=== PATIENT | female | born 1985 | race Caucasian/White ===

== ENCOUNTER 2017-04-06 13:15 | Emergency (ER) | payer OTHER ==
[2017-04-06] MEDS ORDERED: SODIUM CHLORIDE 0.9% 1,000 ML IV STA (15:10)
--- NOTE | 2017-04-06 15:31 | ED ---
General Adult HPI - General Chief complaint: Dizziness Stated complaint: nausea/tired/no appetite Time Seen by Provider: 04/06/17 15:01 Source: patient, RN notes reviewed Mode of arrival: ambulatory Limitations: no limitations - History of Present Illness Initial comments: Patient 31-year-old female who presents emergency room today with multiple complaints. Patient admits that symptoms started approximately 3 months ago. She states she's been feeling very tired. She states that she has had some loose stool. Denies any signs of blood. States that she's had some pain in the epigastric and left upper quadrant. States seems to come and go but is been more consistent lately. States she's been waking up at night with sweats feeling hot. Please use medication as discussed. Please follow-up with family doctor in the next 2 days of symptoms have not improved. Please return to emergency room if the symptoms increase or worsen or for any other concerns.Patient denies any other complaints at this time. Patient denies any shortness of breath, chest pain, back pain, vomiting, numbness or tingling, dysuria or hematuria, constipation or diarrhea, headaches or visual changes, or any other complaints. - Related Data Home Medications Medication Instructions Recorded Confirmed No Known Home Medications [No 04/06/17 04/06/17 Known Home Medications] Allergies Allergy/AdvReac Type Severity Reaction Status Date / Time codeine Allergy Swelling Verified 04/06/17 15:16 latex Allergy Swelling Verified 04/06/17 15:16 Review of Systems ROS Statement: Those systems with pertinent positive or pertinent negative responses have been documented in the HPI. ROS Other: All systems not noted in ROS Statement are negative. Past Medical History Past Medical History: Hypertension Additional Past Medical History / Comment(s): ovarian cyst , uterine mass, History of Any Multi-Drug Resistant Organisms: None Reported Past Surgical History: Section, Hysterectomy, Tonsillectomy Additional Past Surgical History / Comment(s): carpal tunnel,kb foot surgery, back surgery Past Psychological History: Anxiety Smoking Status: Current every day smoker Past Alcohol Use History: None Reported Past Drug Use History: None Reported General Exam Limitations: no limitations Course Vital Signs 04/06/17 13:33 Temperature 100.3 F H Pulse Rate 69 Respiratory 16 Rate Blood Pressure 127/60 O2 Sat by Pulse 97 Oximetry Medical Decision Making - Medical Decision Making Case discussed in detail with attending physician Dr. Vegas. Patient reexamined at this time shows no signs of distress resting comfortably. Patient does admit that she's had elevated white counts in the past. Patient's CT negative for any acute abdomen maladies. Chest x-ray negative. Results were discussed with patient. At this time shows an comfortable. Advised close follow-up family doctor in the next 2 days. Advised return to emergency room if any symptoms increase worsen or for any other concerns. - Lab Data Result diagrams: 04/06/17 15:38 04/06/17 15:38 Lab Results 04/06/17 04/06/17 04/06/17 Range/Units 15:38 15:38 15:38 WBC 14.3 H (3.8-10.6) k/uL RBC 4.61 (3.80-5.40) m/uL Hgb 14.9 (11.4-16.0) gm/dL Hct 45.0 (34.0-46.0) % MCV 97.8 (80.0-100.0) fL MCH 32.3 (25.0-35.0) pg MCHC 33.0 (31.0-37.0) g/dL RDW 12.9 (11.5-15.5) % Plt Count 341 (150-450) k/uL Neutrophils % 62 % Lymphocytes % 30 % Monocytes % 4 % Eosinophils % 2 % Basophils % 1 % Neutrophils # 8.9 H (1.3-7.7) k/uL Lymphocytes # 4.3 (1.0-4.8) k/uL Monocytes # 0.6 (0-1.0) k/uL Eosinophils # 0.3 (0-0.7) k/uL Basophils # 0.1 (0-0.2) k/uL Sodium 141 (137-145) mmol/L Potassium 4.0 (3.5-5.1) mmol/L Chloride 106 (98-107) mmol/L Carbon Dioxide 26 (22-30) mmol/L Anion Gap 9 mmol/L BUN 7 (7-17) mg/dL Creatinine 0.67 (0.52-1.04) mg/dL Est GFR (MDRD) Af Amer >60 (>60 ml/min/1.73 sqM) Est GFR (MDRD) Non-Af >60 (>60 ml/min/1.73 sqM) Glucose 95 (74-99) mg/dL Calcium 9.4 (8.4-10.2) mg/dL Total Bilirubin 0.2 (0.2-1.3) mg/dL AST 17 (14-36) U/L ALT 32 (9-52) U/L Alkaline Phosphatase 64 (38-126) U/L Total Protein 6.8 (6.3-8.2) g/dL Albumin 4.1 (3.5-5.0) g/dL Amylase 37 (30-110) U/L Lipase 89 (23-300) U/L TSH 0.633 (0.465-4.680) mIU/L Urine Color Urine Appearance (Clear) Urine pH (5.0-8.0) Ur Specific [place] (1.001-1.035) Urine Protein (Negative) Urine Glucose (UA) (Negative) Urine Ketones (Negative) Urine Blood (Negative) Urine Nitrite (Negative) Urine Bilirubin (Negative) Urine Urobilinogen (<2.0) mg/dL Ur Leukocyte Esterase (Negative) Urine HCG, Qual Not Detected (Not Detectd) 04/06/17 Range/Units 15:38 WBC (3.8-10.6) k/uL RBC (3.80-5.40) m/uL Hgb (11.4-16.0) gm/dL Hct (34.0-46.0) % MCV (80.0-100.0) fL MCH (25.0-35.0) pg MCHC (31.0-37.0) g/dL RDW (11.5-15.5) % Plt Count (150-450) k/uL Neutrophils % % Lymphocytes % % Monocytes % % Eosinophils % % Basophils % % Neutrophils # (1.3-7.7) k/uL Lymphocytes # (1.0-4.8) k/uL Monocytes # (0-1.0) k/uL Eosinophils # (0-0.7) k/uL Basophils # (0-0.2) k/uL Sodium (137-145) mmol/L Potassium (3.5-5.1) mmol/L Chloride (98-107) mmol/L Carbon Dioxide (22-30) mmol/L Anion Gap mmol/L BUN (7-17) mg/dL Creatinine (0.52-1.04) mg/dL Est GFR (MDRD) Af Amer (>60 ml/min/1.73 sqM) Est GFR (MDRD) Non-Af (>60 ml/min/1.73 sqM) Glucose (74-99) mg/dL Calcium (8.4-10.2) mg/dL Total Bilirubin (0.2-1.3) mg/dL AST (14-36) U/L ALT (9-52) U/L Alkaline Phosphatase (38-126) U/L Total Protein (6.3-8.2) g/dL Albumin (3.5-5.0) g/dL Amylase (30-110) U/L Lipase (23-300) U/L TSH (0.465-4.680) mIU/L Urine Color Light Yellow Urine Appearance Clear (Clear) Urine pH 6.5 (5.0-8.0) Ur Specific [place] 1.010 (1.001-1.035) Urine Protein Negative (Negative) Urine Glucose (UA) Negative (Negative) Urine Ketones Negative (Negative) Urine Blood Negative (Negative) Urine Nitrite Negative (Negative) Urine Bilirubin Negative (Negative) Urine Urobilinogen <2.0 (<2.0) mg/dL Ur Leukocyte Esterase Negative (Negative) Urine HCG, Qual (Not Detectd) Disposition Clinical Impression: Abdominal pain Disposition: HOME SELF-CARE Condition: Good Instructions: Abdominal Pain (ED) Additional Instructions: Please follow-up with family doctor in the next 2 days of symptoms have not improved. Please return to emergency room if the symptoms increase or worsen or for any other concerns. Referrals: None,Stated [Primary Care Provider] - 1-2 days Selvin London MD [REFERRING] - 1-2 days Time of Disposition: 17:19
[2017-04-06 15:49] LABS: Basophils # (A) 0.1 k/uL (0-0.2); Basophils % (A) 1 %; CHCM 33.9; Eosinophils # (A) 0.3 k/uL (0-0.7); Eosinophils % (A) 2 %; HDW 2.13; HGB 14.9 gm/dL (11.4-16.0); Luc % (Auto) 1; Lymphocytes # (A) 4.3 k/uL (1.0-4.8); Lymphocytes % (A) 30 %; MCH 32.3 pg (25.0-35.0); MCV 97.8 fL (80.0-100.0); Mean Platelet Volume 8.8; Monocytes # (A) 0.6 k/uL (0-1.0); Monocytes % (A) 4 %; Neutrophils # (A) 8.9 k/uL (1.3-7.7); Neutrophils % (A) 62 %; RBC 4.61 m/uL (3.80-5.40); RDW 12.9 % (11.5-15.5); WBC 14.3 k/uL (3.8-10.6); WBC (Perox) 13.56
[2017-04-06 15:50] LABS: Appearance,Urine Clear (Clear); Bilirubin,Urine Negative (Negative); Glucose,Urine (UA) Negative (Negative); Ketones,Urine Negative (Negative); Leukocyte Esterase,Urine Negative (Negative); Nitrite,Urine Negative (Negative); PH, Urine 6.5 (5.0-8.0); Protein,Urine Negative (Negative); UA Billing (MACRO vs. MICRO) CHEM; Urobilinogen,Urine <2.0 mg/dL (<2.0)
--- NOTE | 2017-04-06 15:58 | XR ---
EXAMINATION TYPE: XR chest 2V DATE OF EXAM: 04/06/2017 COMPARISON: Prior chest x-ray 09/27/2015 HISTORY: Fever, haziness, hypertension TECHNIQUE: Frontal and lateral views of the chest are obtained. FINDINGS: There is no focal air space opacity, pleural effusion, or pneumothorax seen. The cardiac silhouette size is within normal limits. The osseous structures are intact. IMPRESSION: No acute cardiopulmonary process.
[2017-04-06 15:59] LABS: ALT 32 U/L (9-52); AST 17 U/L (14-36); Alkaline Phosphatase 64 U/L (38-126); Amylase 37 U/L (30-110); Anion Gap 9 mmol/L; Blood Urea Nitrogen 7 mg/dL (7-17); Calcium 9.4 mg/dL (8.4-10.2); Carbon Dioxide 26 mmol/L (22-30); Chloride 106 mmol/L (98-107); Glucose 95 mg/dL (74-99); Non-African American GFR(MDRD) >60 (>60 ml/min/1.73 sqM); Sodium 141 mmol/L (137-145); Total Bilirubin 0.2 mg/dL (0.2-1.3); Total Protein 6.8 g/dL (6.3-8.2)
--- NOTE | 2017-04-06 16:00 | XR ---
Abdomen HISTORY: Abdomen pain left upper quadrant and loss of appetite Frontal view of the abdomen on 2 images correlated to prior exam 01/06/2014, 01/15/2015 The lung bases are clear. There is no bowel obstruction or pneumoperitoneum. No pathologic calcificat ion evident. IMPRESSION: No acute abnormalities evident
[2017-04-06] MEDS ORDERED: RX INFO: IV CONTRAST WAS GIVEN 1 EACH MISC MISCELLANE PRN (16:13)
--- NOTE | 2017-04-06 16:52 | CT ---
EXAMINATION TYPE: CT abdomen pelvis w con DATE OF EXAM: 04/06/2017 COMPARISON: 08/08/2014 HISTORY: Generalized abdominal pain and diarrhea x couple months. CT DLP: 1452.00 mGycm Automated exposure control for dose reduction was used. TECHNIQUE: Helical acquisition of images was performed from the lung bases through the pelvis. CONTRAST: Performed without Oral Contrast and with IV Contrast, patient injected with 100 mL of Omnipaque 300. FINDINGS: Lung bases are clear. There is no pleural effusion. Heart size is normal. Liver spleen pancreas gallbladder appear normal. Bile ducts are not dilated. There is no adrenal mass. Kidneys have normal size and contour. There is no hydronephrosis. There is no retroperitoneal adenopathy. I see no intestinal wall thickening. There are no dilated loops. Bladder distends smoothly. There is no ascites. Appendix appears normal. Bony structures appear intact. There is a small umbilical 1 cm h ernia that contains omental fat. IMPRESSION: NEGATIVE CT SCAN OF THE ABDOMEN AND PELVIS. NORMAL APPENDIX. NO CHANGE COMPARED TO OLD EXAM.
[2017-04-06 17:24] VITALS: BP 120/78; PULSE 56; RESP 18; TEMP 97.7
== END 2017-04-06 17:57 | disposition home or self-care (01) ==
LOC: EC 13:15
DX: R10.12 Left upper quadrant pain (principal); R10.13 Epigastric pain; F17.200 Nicotine dependence, unspecified, uncomplicated; Z88.5 Allergy status to narcotic agent; Z91.040 Latex allergy status
CPT/HCPCS: 36415; 93005; 80053; 84443; 82150; 83690; 85025; 81003; 81025; 87040; 87086; 71020; 74000; 74177; 99284; 96360; Q9967

== ENCOUNTER 2017-07-02 13:09 | Emergency (ER) | payer OTHER ==
[2017-07-02 13:21] VITALS: RESP 18
--- NOTE | 2017-07-02 14:04 | ED ---
General Adult HPI - General Chief complaint: Urogenital Stated complaint: Abd Pain, Poss UTI Time Seen by Provider: 07/02/17 13:20 Source: patient, RN notes reviewed Mode of arrival: ambulatory Limitations: no limitations - History of Present Illness Initial comments: Is a 32-year-old female who presents emergency Department complaining of vaginal discomfort. Patient states been ongoing for about 5 days. Patient states is also an odor that is abnormal for her. Patient states she thinks her boyfriend might if she got up but she's not sure. Patient denies any fever chills. Patient denies any dysuria hematuria urinary frequency. Patient denies any abdominal pain. Patient denies any nausea vomiting diarrhea. Patient states she's had a hysterectomy and oophorectomy on the right. Patient states there is a slight discharge since a little different than normal. - Related Data Previous Rx's Medication Instructions Recorded metroNIDAZOLE [Flagyl] 500 mg PO BID #14 tab 07/02/17 Allergies Allergy/AdvReac Type Severity Reaction Status Date / Time codeine Allergy Swelling Verified 07/02/17 13:32 latex Allergy Swelling Verified 07/02/17 13:32 Review of Systems ROS Statement: Those systems with pertinent positive or pertinent negative responses have been documented in the HPI. ROS Other: All systems not noted in ROS Statement are negative. Past Medical History Past Medical History: Hypertension Additional Past Medical History / Comment(s): ovarian cyst , uterine mass, History of Any Multi-Drug Resistant Organisms: None Reported Past Surgical History: Section, Hysterectomy, Tonsillectomy Additional Past Surgical History / Comment(s): carpal tunnel,kb foot surgery, back surgery Past Psychological History: Anxiety Smoking Status: Current every day smoker Past Alcohol Use History: None Reported Past Drug Use History: None Reported General Exam - General Exam Comments Initial Comments: GENERAL: Patient is well-developed and well-nourished. Patient is nontoxic and well- hydrated and is in no acute distress. ENT: Neck is soft and supple. No significant lymphadenopathy is noted. Oropharynx is clear. Moist mucous membranes. Neck has full range of motion without eliciting any pain. EYES: The sclera were anicteric and conjunctiva were pink and moist. Extraocular movements were intact and pupils were equal round and reactive to light. Eyelids were unremarkable. PULMONARY: Unlabored respirations. Good breath sounds bilaterally. No audible rales rhonchi or wheezing was noted. CARDIOVASCULAR: There is a regular rate and rhythm without any murmurs gallops or rubs. ABDOMEN: Soft and nontender with normal bowel sounds. No palpable organomegaly was noted. There is no palpable pulsatile mass. GENITAL: There is some mild odor on examination. On speculum exam there is some white discharge. She states this is a little abnormal for her. SKIN: Skin is clear with no lesions or rashes and otherwise unremarkable. NEUROLOGIC: Patient is alert and oriented x3. Cranial nerves II through XII are grossly intact. Motor and sensory are also intact. Normal speech, volume and content. Symmetrical smile. MUSCULOSKELETAL: Normal extremities with adequate strength and full range of motion. No lower extremity swelling or edema. No calf tenderness. LYMPHATICS: No significant lymphadenopathy is noted PSYCHIATRIC: Normal psychiatric evaluation. Normal interpersonal interactions appears functionally intact in deals appropriately with others. No signs of depression. No signs of anxiety. Limitations: no limitations Course Vital Signs 07/02/17 13:17 Temperature 98.7 F Pulse Rate 74 Respiratory 18 Rate Blood Pressure 119/59 O2 Sat by Pulse 98 Oximetry Medical Decision Making - Lab Data Lab Results 07/02/17 07/02/17 Range/Units 14:00 14:00 Urine Color Light Yellow Urine Appearance Clear (Clear) Urine pH 5.5 (5.0-8.0) Ur Specific [place] 1.005 (1.001-1.035) Urine Protein Negative (Negative) Urine Glucose (UA) Negative (Negative) Urine Ketones Negative (Negative) Urine Blood Negative (Negative) Urine Nitrite Negative (Negative) Urine Bilirubin Negative (Negative) Urine Urobilinogen <2.0 (<2.0) mg/dL Ur Leukocyte Esterase Negative (Negative) Trichomonas Ag (Rapid) Negative (Negative) Disposition Clinical Impression: Bacterial vaginosis Disposition: HOME SELF-CARE Condition: Good Instructions: Bacterial Vaginosis (ED) Prescriptions: metroNIDAZOLE [Flagyl] 500 mg PO BID #14 tab Referrals: None,Stated [Primary Care Provider] - 1-2 days Time of Disposition: 14:45
[2017-07-02 14:10] LABS: Appearance,Urine Clear (Clear); Bilirubin,Urine Negative (Negative); Glucose,Urine (UA) Negative (Negative); Ketones,Urine Negative (Negative); Leukocyte Esterase,Urine Negative (Negative); Nitrite,Urine Negative (Negative); PH, Urine 5.5 (5.0-8.0); Protein,Urine Negative (Negative); Specific Gravity,Urine 1.005 (1.001-1.035); UA Billing (MACRO vs. MICRO) CHEM; Urobilinogen,Urine <2.0 mg/dL (<2.0)
[2017-07-02 14:56] VITALS: BP 121/58; PULSE 85; TEMP 98
[2017-07-04 12:05] LABS: Chlamydia/GC Source Vaginal
== END 2017-07-02 14:56 | disposition home or self-care (01) ==
LOC: EC 13:09
DX: N76.0 Acute vaginitis (principal); F17.200 Nicotine dependence, unspecified, uncomplicated; Z90.710 Acquired absence of both cervix and uterus; Z90.722 Acquired absence of ovaries, bilateral; Z88.5 Allergy status to narcotic agent; Z91.040 Latex allergy status
CPT/HCPCS: 81003; 87070; 87205; 87491; 87591; 87808; 99284

== ENCOUNTER → 2017-08-16 | Outpatient (CLI) | payer OTHER ==
--- NOTE | 2017-08-16 23:12 | XR ---
EXAMINATION TYPE: XR KUB DATE OF EXAM: 08/16/2017 CLINICAL DATA: 32-year-old female right-sided abdominal pain, calculus of ureter, PHH COMPARISON: 04/06/2017 FINDINGS: Supine imaging limited for assessment of free air. Mild scattered stool written. Nonobstructive bowel gas pattern. Rounded calcifications in the pelvis suggest phleboliths. IMPRESSION: Calcifications in the pelvis suggestive of phleboliths. No suspicious renal calculus is appreciated r adiographically.
== END | disposition home or self-care (01) ==
LOC: RADXRMAIN 14:27
PROVIDERS: ATTEND Physician Assistant
DX: R93.41 Abnormal radiologic findings on diagnostic imaging of renal pelvis, ureter, or bladder (principal)
CPT/HCPCS: 74000

== ENCOUNTER → 2018-02-15 | Day surgery (SDC) | payer OTHER ==
[2018-02-10 09:32] VITALS: BMI 33.7
[~2018-02-15] MED LIST: LIDOCAINE 1% INJ 10MG/ML (20 ML MDV) ONE; PROPOFOL 10 MG/ML 20 ML VIAL IV ONE
--- NOTE | 2018-02-15 16:11 | P.OP ---
Date of Procedure: 02/15/18 Preoperative Diagnosis: GERD Epigastric pain Postoperative Diagnosis: Mild antral gastritis Small hiatal hernia Esophagitis Rectal polyp Procedure(s) Performed: EGD Colonoscopy Anesthesia: MAC Surgeon: Ruslan Brewer Pathology: other (Antrum, esophagus, rectal polyp) Condition: stable Disposition: PACU Description of Procedure: The patient's placed on the endoscopy table in the lateral position. She received IV sedation. The gastroscope placed oropharynx passed in the esophagus into the stomach. Scope was then placed through the pylorus. The first and second portion of the duodenum appeared normal. The scope was then brought back the antrum and this appeared mildly inflamed. A biopsies performed. Scope was unretroflexed and remainder stomach appeared normal. There is a small hiatal hernia. The GE junction was at 38 cm. The distal esophagus appeared inflamed this area is biopsied. The proximal esophagus appeared normal. Scope was brought patient. Next digital rectal exam was performed which revealed no ebonized. The flexible colonoscope was then placed the patient's anus and passed throughout the entire colon. The ileocecal valve was visualized. Cecum, ascending and transverse colon appeared normal. The descending colon appeared normal. In the rectum there is a small polyp seen this removed with cold forcep. The scope was withdrawn for patient.
== END ==
LOC: ORWHC2ENDO 08:44
PROVIDERS: ATTEND Surgery
DX: K21.0 Gastro-esophageal reflux disease with esophagitis (principal); K29.50 Unspecified chronic gastritis without bleeding; K44.9 Diaphragmatic hernia without obstruction or gangrene; K62.1 Rectal polyp; Z72.0 Tobacco use; Z88.5 Allergy status to narcotic agent; Z91.040 Latex allergy status; Z79.899 Other long term (current) drug therapy
CPT/HCPCS: 88305; 45380; 43239; J2001; J2704

== ENCOUNTER → 2018-03-08 | Outpatient (CLI) | payer OTHER ==
--- NOTE | 2018-03-08 09:27 | US ---
EXAMINATION TYPE: US gallbladder DATE OF EXAM: 03/08/2018 COMPARISON: CT 04/06/17 CLINICAL HISTORY: K81.1 Chronic Cholecysitis. Abd Pain, Nausea EXAM MEASUREMENTS: Liver Length: 15.2 cm Gallbladder Wall: 0.1 cm CBD: 0.3 cm Right Kidney: 12.3 x 6.1 x 4.4 cm Pancreas: Tail obscured by overlying bowel gas Liver: wnl Gallbladder: wnl Evidence for sonographic Petersen's sign: No CBD: wnl Right Kidney: wnl IMPRESSION: 1. Fatty hepatic infiltration noted.
--- NOTE | 2018-03-08 10:14 | NM ---
EXAMINATION TYPE: NM hepatobiliary w CCK DATE OF EXAM: 03/08/2018 COMPARISON: NONE HISTORY: Pain, chronic cholecystitis TECHNIQUE: After the intravenous administration of 4.79 mCi Tc 99m Mebrofenin hepatobiliary scintigra phy is performed. Immediate images post injection. FINDINGS: There is satisfactory initial accumulation of tracer by the liver. The gallbladder is visualized wit hin 8 minutes. The small bowel activity is noted within 18 minutes. At one hour CCK was administere d, patient was injected with 1.9 mcg of Kinevac, and gallbladder ejection fraction is calculated at 7 9 %, in the normal range. Therefore there is no scintigraphic evidence of cystic or common bile duct obstruction to suggest acute cholecystitis or gallbladder dyskinesia. IMPRESSION: Exam is within normal limits.
== END | disposition home or self-care (01) ==
LOC: RADUSMAIN 07:47
PROVIDERS: ATTEND Surgery
DX: K76.0 Fatty (change of) liver, not elsewhere classified (principal); K81.1 Chronic cholecystitis
CPT/HCPCS: 76705; 78227; A9537; J2805

== ENCOUNTER 2018-03-22 13:03 | Day surgery (SDC) | payer OTHER ==
[2018-03-15 13:05] VITALS: BMI 34.4
[~2018-03-22 13:03] MED LIST changes: +DEXAMETHASONE SOD PHOSPHATE 10 MG/ML 1 ML VIAL IV ONE; +HEPARIN SODIUM,PORCINE 5,000 UNIT/ML 1 ML VIAL SQ ONE; +LIDOCAINE 1% 20 ML VIAL (10MG/ML) FOR IV START INTRADERMA PRN; -LIDOCAINE 1% INJ 10MG/ML (20 ML MDV) ONE; +MIDAZOLAM 2 MG/2 ML VIAL IV PRN; +ONDANSETRON 4 MG/2 ML VIAL IVP ONE; -PROPOFOL 10 MG/ML 20 ML VIAL IV ONE; +SCOPOLAMINE 1.5MG/72HR PATCH TRANSDERM ONE; +ceFAZolin IN SWFI 2 GM/20 ML SYRINGE IVP ONE
[2018-03-22] MEDS: LACTATED RINGERS 1,000 ML IV SCH ×2 (13:30→14:40)
--- NOTE | 2018-03-22 13:59 | P.GSHP ---
History of Present Illness H&P Date: 03/22/18 Chief Complaint: Right upper quadrant pain This is a 32-year-old female who's had complaints of right upper quadrant pain. Her recent HIDA scan shows an elevated ejection fraction. She presents today for laparoscopic cholecystectomy for chronic cholecystitis. 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 History of Any Multi-Drug Resistant Organisms: None Reported Past Surgical History: Bladder Surgery, Section, Hysterectomy, Tonsillectomy, Tubal Ligation Additional Past Surgical History / Comment(s): Tumors removed from uterus and ovary, lipoma removed from back, bilateral foot surgery, bilateral carpal tunnel , exploratory laparoscopy. Past Anesthesia/Blood Transfusion Reactions: No Reported Reaction Past Psychological History: Anxiety Smoking Status: Current every day smoker Past Alcohol Use History: Occasional Additional Past Alcohol Use History / Comment(s): Smokes 1/2 PPD, since age 14 yrs old. Past Drug Use History: None Reported - Past Family History Mother Family Medical History: Cancer, Deep Vein Thrombosis (DVT) Medications and Allergies Home Medications Medication Instructions Recorded Confirmed Type Pantoprazole Sodium 20 mg PO QAM 03/15/18 03/22/18 History Allergies Allergy/AdvReac Type Severity Reaction Status Date / Time codeine Allergy Swelling Verified 03/22/18 13:18 of mouth and tongue latex Allergy Swelling/ra Verified 03/22/18 13:18 sh Surgical - Exam Vital Signs Temp Pulse Resp BP Pulse Ox 97.8 F 82 16 124/84 98 03/22/18 13:21 03/22/18 13:21 03/22/18 13:21 03/22/18 13:21 03/22/18 13:21 - General well developed, no distress - Eyes PERRL - ENT normal pinna - Neck no masses - Cardiovascular Rhythm: regular - Abdomen Abdomen: soft, non tender Assessment and Plan Assessment: History of right upper quadrant pain Chronic cholecystitis We'll perform laparoscopic cholecystectomy.
[2018-03-22] MEDS ORDERED: LIDOCAINE 1%-EPI 1:100,000 30 ML VIAL SQ ONE ×3 (14:17→15:20)
[2018-03-22] MEDS ORDERED: PROPOFOL 10 MG/ML 20 ML VIAL IV ONE (14:42)
[2018-03-22] MEDS ORDERED: LIDOCAINE 1% INJ 10MG/ML (20 ML MDV) ONE (14:42)
[2018-03-22] MEDS ORDERED: MIDAZOLAM 2 MG/2 ML VIAL ONE (14:42)
[2018-03-22] MEDS ORDERED: SUCCINYLCHOLINE CHLORIDE 100 MG/5 ML SYR IV ONE (14:42)
[2018-03-22] MEDS ORDERED: HYDROmorphone (PF) 1 MG/ML ONE (14:42)
[2018-03-22] MEDS ORDERED: GLYCOPYRROLATE 0.2 MG/ML 2 ML VIAL ONE (14:42)
[2018-03-22] MEDS ORDERED: fentaNYL (PF) 50 MCG/ML 2 ML AMP ONE (14:42)
[2018-03-22] MEDS ORDERED: NEOSTIGMINE 1 MG/ML 10 ML VIAL ONE (14:42)
[2018-03-22] MEDS ORDERED: ROCURONIUM BROMIDE 10 MG/ML 10 ML VIAL IV ONE (14:42)
[2018-03-22] MEDS: HYDROmorphone 0.5 MG/0.5 ML SYRINGE IVP PRN ×4 (15:50→16:31)
--- NOTE | 2018-03-22 15:51 | P.OP ---
Date of Procedure: 03/22/18 Preoperative Diagnosis: Cholecystitis Postoperative Diagnosis: Cholecystitis Procedure(s) Performed: Laparoscopic cholecystectomy Anesthesia: SUELLEN Surgeon: Ruslan Brewer Estimated Blood Loss (ml): 5 Pathology: other (Gallbladder) Condition: stable Disposition: PACU Description of Procedure: The patient was placed on the operating table. The patient received a general endotracheal tube anesthesia. The patients abdomen was prepped and draped in the usual sterile fashion. Through an infraumbilical stab incision, the fascia of the anterior abdominal wall was grasped with a pair of Kochers and then the Veress needle was placed in the peritoneal cavity. Position of the Veress needle was confirmed with positive drop test. The abdomen was then insufflated. After adequate insufflation, the 10 mm trocar was placed in the peritoneal cavity. Following this the laparoscope was placed in the peritoneal cavity. The patient was placed in the head-up, right side up position and then a 5 mm trocar was placed in the right lateral and right subcostal position under direct visualization. A 8 mm trocar was placed in the epigastric position. The gallbladder was grasped in the fundus and infundibulum. Traction on the gallbladder was placed in the lateral and the cephalad positions. The triangle of Calot was visualized.. The cystic duct was bluntly dissected until the union of the cystic duct and common bile duct was seen. The cystic duct was then divided and sealed with the Harmonic scissors. A PDS Endoloop was then placed throughout the cystic duct stump. The cystic artery divided and sealed with the Harmonic scissors. The gallbladder was then removed from the liver bed using Harmonic scissors. The gallbladder was then extracted through the epigastric port site. Operative field was checked for any bleeding spots and Harmonic scissors was used to coagulate the liver bed. The abdomen was irrigated. The trocars were removed. The skin was closed using interrupted 3-0 Vicryl suture. Dermabond dressing were applied. The patient tolerated the procedure well.
[2018-03-22 15:59] VITALS: TEMP 97.7
[2018-03-22] MEDS ORDERED: ONDANSETRON 4 MG/2 ML VIAL IVP ONE (16:01)
[2018-03-22] MEDS ORDERED: KETOROLAC 30 MG/ML 1 ML VIAL IVP ONE (16:02)
[2018-03-22 16:39] VITALS: RESP 18
[2018-03-22] MEDS ORDERED: HYDROcodone/APAP 7.5-325MG 1 EACH TAB PO ONE (17:16)
[2018-03-22 17:46] VITALS: BP 120/80; PULSE 64
== END 2018-03-22 17:54 | disposition home or self-care (01) ==
LOC: OR 13:03
PROVIDERS: ATTEND Surgery
DX: K81.1 Chronic cholecystitis (principal); M79.7 Fibromyalgia; K21.9 Gastro-esophageal reflux disease without esophagitis; I10 Essential (primary) hypertension; N30.10 Interstitial cystitis (chronic) without hematuria; F41.9 Anxiety disorder, unspecified; C95.90 Leukemia, unspecified not having achieved remission; F17.210 Nicotine dependence, cigarettes, uncomplicated; Z79.899 Other long term (current) drug therapy; Z88.5 Allergy status to narcotic agent; Z91.040 Latex allergy status; Z90.710 Acquired absence of both cervix and uterus; Z98.51 Tubal ligation status
CPT/HCPCS: 47562; J2250; J1644; J1100; J2710; J2405; J2001; J3010; J1885; J1170 ×2; J0330; J2704; J0690; 88304

== ENCOUNTER 2019-06-29 08:40 | Emergency (ER) | payer OTHER ==
[2019-06-29] MEDS ORDERED: SODIUM CHLORIDE 0.9% 1,000 ML IV STA (09:13)
[2019-06-29 09:27] LABS: Basophils # (A) 0.1 k/uL (0-0.2); Basophils % (A) 1 %; Eosinophils # (A) 0.3 k/uL (0-0.7); Eosinophils % (A) 2 %; HCT 44.2 % (34.0-46.0); HGB 14.9 gm/dL (11.4-16.0); Lymphocytes # (A) 2.5 k/uL (1.0-4.8); Lymphocytes % (A) 20 %; MCH 32.1 pg (25.0-35.0); MCHC 33.8 g/dL (31.0-37.0); Mean Platelet Volume 6.7; Monocytes # (A) 0.5 k/uL (0-1.0); Monocytes % (A) 4 %; Neutrophils % (A) 71 %; Platelet Count 381 k/uL (150-450); RBC 4.65 m/uL (3.80-5.40); RDW 12.3 % (11.5-15.5); WBC 12.6 k/uL (3.8-10.6)
[2019-06-29 09:38] LABS: ALT 29 U/L (9-52); AST 27 U/L (14-36); African American GFR (CKD) >90 (>60 ml/min/1.73 sqM); Albumin 4.2 g/dL (3.5-5.0); Alkaline Phosphatase 64 U/L (38-126); Anion Gap 10 mmol/L; Blood Urea Nitrogen 13 mg/dL (7-17); Calcium 9.7 mg/dL (8.4-10.2); Carbon Dioxide 24 mmol/L (22-30); Chloride 106 mmol/L (98-107); Glucose 100 mg/dL (74-99); Potassium 4.4 mmol/L (3.5-5.1); Sodium 140 mmol/L (137-145); Total Bilirubin 0.4 mg/dL (0.2-1.3); Total Protein 7.4 g/dL (6.3-8.2)
[2019-06-29 09:49] LABS: Appearance,Urine Clear (Clear); Bilirubin,Urine Negative (Negative); Blood,Urine Negative (Negative); Color,Urine Yellow; Glucose,Urine (UA) Negative (Negative); Ketones,Urine Negative (Negative); Leukocyte Esterase,Urine Negative (Negative); Nitrite,Urine Negative (Negative); PH, Urine 6.5 (5.0-8.0); Protein,Urine Negative (Negative); Urobilinogen,Urine <2.0 mg/dL (<2.0)
--- NOTE | 2019-06-29 10:00 | CT ---
EXAMINATION TYPE: CT abdomen pelvis w con DATE OF EXAM: 06/29/2019 COMPARISON: 04/06/2017 HISTORY: Right upper quadrant pain. CT DLP: 1776.4 mGy Automated exposure control for dose reduction was used. CONTRAST: CT scan of the abdomen pelvis is performed with IV Contrast, patient injected with 100 mL of Isovue 3 00. FINDINGS- LUNG BASES- No significant abnormality is appreciated. LIVER/GB- No gross abnormality is appreciated. PANCREAS- No gross abnormality is seen. SPLEEN- No gross abnormality is seen. ADRENALS- No gross abnormality is seen. KIDNEYS/BLADDER- no hydronephrosis nephrolithiasis or renal mass. BOWEL- no bowel dilatation. Normal appendix. LYMPH NODES- No greater than 1cm abdominal or pelvic lymph nodes areappreciated. OSSEOUS STRUCTURES- No significant abnormality is seen. OTHER- there is a prominent soft tissue nodule left adnexa which most likely is related to be residu al left ovary with small decompressed cyst. Correlate for previous hysterectomy. Fat-containing anter ior abdominal wall hernia. Retroaortic left renal vein noted. IMPRESSION- 1. There is a prominent soft correlate with pelvic ultrasound formation is tissue nodule left adnexa which most likely is related to be residual left ovary with small decompressed cyst.
[2019-06-29] MEDS ORDERED: KETOROLAC 30 MG/ML 1 ML VIAL IVP STA (10:03)
--- NOTE | 2019-06-29 10:05 | ED ---
Abdominal Pain HPI - General Chief Complaint: Abdominal Pain Stated Complaint: ABDOMINAL PRESSURE RT SIDE Hx LIVER PROBLEM Time Seen by Provider: 06/29/19 08:56 Source: patient Mode of arrival: ambulatory Limitations: no limitations - History of Present Illness Initial Comments: 34-year-old female with history of fatty liver presents emergency department for chief complaint of right upper quadrant tenderness. History of previous cholecystectomy. Patient states that she has had right upper quadrant tenderness for the past year. She states is interference her daily activity. Patient states that she was told she had an enlarged liver. Patient states she is scheduled for a CT of the abdomen and pelvis with contrast this Tuesday. Patient states she cannot bear weight. She states she wants answers and further evaluation of this chronic pressure in the right upper quadrant. Patient states that she feels increased pressure when she takes deep breath denies sharp pain denies pleuritic chest pain denies chest pain nausea vomiting back pain. P atient denies any fevers or recent changes in symptoms. Patient denies any vaginal discharge. Remaining review of system negative. Patient appears well upon arrival no signs acute distress - Related Data Home Medications Medication Instructions Recorded Confirmed Pantoprazole Sodium 20 mg PO QAM 03/15/18 06/29/19 diphenhydrAMINE HCL [Benadryl] 25 - 50 mg PO HS PRN 06/29/19 06/29/19 Allergies Allergy/AdvReac Type Severity Reaction Status Date / Time codeine Allergy Swelling Verified 06/29/19 09:20 of mouth and tongue latex Allergy Swelling/ra Verified 06/29/19 09:20 sh Review of Systems ROS Statement: Those systems with pertinent positive or pertinent negative responses have been documented in the HPI. ROS Other: All systems not noted in ROS Statement are negative. 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 History of Any Multi-Drug Resistant Organisms: None Reported Past Surgical History: Bladder Surgery, Section, Hysterectomy, Tonsillectomy, Tubal Ligation Additional Past Surgical History / Comment(s): Tumors removed from uterus and ovary, lipoma removed from back, bilateral foot surgery, bilateral carpal tunnel, exploratory laparoscopy. Past Anesthesia/Blood Transfusion Reactions: No Reported Reaction Past Psychological History: Anxiety Smoking Status: Current every day smoker Past Alcohol Use History: Occasional Past Drug Use History: Marijuana - Past Family History Mother Family Medical History: Cancer, Deep Vein Thrombosis (DVT) General Exam - General Exam Comments Initial Comments: General: The patient is awake and alert, in no distress, and does not appear acutely ill. Eye: +3 mm pupils are equal, round and reactive to light, extra-ocular movements are intact. No nystagmus. There is normal conjunctiva bilaterally. No signs of icterus. Cardiovascular: There is a regular rate and rhythm. No murmur, rub or gallop is appreciated. Respiratory: Lungs are clear to auscultation, respirations are non-labored, breath sounds are equal. No wheezes, stridor, rales, or rhonchi. Gastrointestinal: Soft, non-distended, bowel tenderness for patient of the upper quadrant there is no rebound or guarding present, negative Petersen sign. There is no appreciated organomegaly. The remaining abdomen without masses. Or tenderness No CVA tenderness. Bowel sounds are unremarkable. Musculoskeletal: Normal ROM, no tenderness. Strength 5/5. Sensation intact. Pulses equal bilaterally 2+. Neurological: A&O x 3. CN II-XII intact grossly, There are no obvious motor or sensory deficits. Coordination appears grossly intact. Speech is normal. Skin: Skin is warm and dry and no rashes or lesions are noted. Psychiatric: Cooperative, appropriate mood & affect, normal judgment. Limitations: no limitations Course Vital Signs 06/29/19 06/29/19 08:47 10:46 Temperature 98.2 F 97.4 F L Pulse Rate 84 60 Respiratory 20 17 Rate Blood Pressure 135/88 118/92 O2 Sat by Pulse 99 95 Oximetry Medical Decision Making - Medical Decision Making Very well-appearing 34-year-old female presented for upper quadrant pressure and pain this is chronic and has been evaluated outpatient. Patient scheduled for outpatient CT. Patient is appreciable right upper quadrant tenderness on exam. She is afebrile nontoxic appearing this does not appear to be a surgical abdomen negative Petersen sign. CT of the abdomen and pelvis with contrast was obtained revealing no acute process. At this time feel patient is stable for discharge and outpatient gastroenterology follow-up for further evaluation of chronic right upper quadrant abdominal pain. Patient is agreeable to this care plan discharge at this time was discharged appearing well. The case with attending provider Dr. Bolanos - Lab Data Result diagrams: 06/29/19 09:10 06/29/19 09:10 Lab Results 06/29/19 06/29/19 06/29/19 Range/Units 09:10 09:10 09:10 WBC 12.6 H (3.8-10.6) k/uL RBC 4.65 (3.80-5.40) m/uL Hgb 14.9 (11.4-16.0) gm/dL Hct 44.2 (34.0-46.0) % MCV 95.0 (80.0-100.0) fL MCH 32.1 (25.0-35.0) pg MCHC 33.8 (31.0-37.0) g/dL RDW 12.3 (11.5-15.5) % Plt Count 381 (150-450) k/uL Neutrophils % 71 % Lymphocytes % 20 % Monocytes % 4 % Eosinophils % 2 % Basophils % 1 % Neutrophils # 9.0 H (1.3-7.7) k/uL Lymphocytes # 2.5 (1.0-4.8) k/uL Monocytes # 0.5 (0-1.0) k/uL Eosinophils # 0.3 (0-0.7) k/uL Basophils # 0.1 (0-0.2) k/uL Sodium 140 (137-145) mmol/L Potassium 4.4 (3.5-5.1) mmol/L Chloride 106 (98-107) mmol/L Carbon Dioxide 24 (22-30) mmol/L Anion Gap 10 mmol/L BUN 13 (7-17) mg/dL Creatinine 0.76 (0.52-1.04) mg/dL Est GFR (CKD-EPI)AfAm >90 (>60 ml/min/1.73 sqM) Est GFR (CKD-EPI)NonAf >90 (>60 ml/min/1.73 sqM) Glucose 100 H (74-99) mg/dL Calcium 9.7 (8.4-10.2) mg/dL Total Bilirubin 0.4 (0.2-1.3) mg/dL AST 27 (14-36) U/L ALT 29 (9-52) U/L Alkaline Phosphatase 64 (38-126) U/L Troponin I <0.012 (0.000-0.034) ng/mL Total Protein 7.4 (6.3-8.2) g/dL Albumin 4.2 (3.5-5.0) g/dL Lipase 79 (23-300) U/L Urine Color Urine Appearance (Clear) Urine pH (5.0-8.0) Ur Specific Dudley (1.001-1.035) Urine Protein (Negative) Urine Glucose (UA) (Negative) Urine Ketones (Negative) Urine Blood (Negative) Urine Nitrite (Negative) Urine Bilirubin (Negative) Urine Urobilinogen (<2.0) mg/dL Ur Leukocyte Esterase (Negative) 06/29/19 Range/Units 09:15 WBC (3.8-10.6) k/uL RBC (3.80-5.40) m/uL Hgb (11.4-16.0) gm/dL Hct (34.0-46.0) % MCV (80.0-100.0) fL MCH (25.0-35.0) pg MCHC (31.0-37.0) g/dL RDW (11.5-15.5) % Plt Count (150-450) k/uL Neutrophils % % Lymphocytes % % Monocytes % % Eosinophils % % Basophils % % Neutrophils # (1.3-7.7) k/uL Lymphocytes # (1.0-4.8) k/uL Monocytes # (0-1.0) k/uL Eosinophils # (0-0.7) k/uL Basophils # (0-0.2) k/uL Sodium (137-145) mmol/L Potassium (3.5-5.1) mmol/L Chloride (98-107) mmol/L Carbon Dioxide (22-30) mmol/L Anion Gap mmol/L BUN (7-17) mg/dL Creatinine (0.52-1.04) mg/dL Est GFR (CKD-EPI)AfAm (>60 ml/min/1.73 sqM) Est GFR (CKD-EPI)NonAf (>60 ml/min/1.73 sqM) Glucose (74-99) mg/dL Calcium (8.4-10.2) mg/dL Total Bilirubin (0.2-1.3) mg/dL AST (14-36) U/L ALT (9-52) U/L Alkaline Phosphatase (38-126) U/L Troponin I (0.000-0.034) ng/mL Total Protein (6.3-8.2) g/dL Albumin (3.5-5.0) g/dL Lipase (23-300) U/L Urine Color Yellow Urine Appearance Clear (Clear) Urine pH 6.5 (5.0-8.0) Ur Specific Dudley 1.020 (1.001-1.035) Urine Protein Negative (Negative) Urine Glucose (UA) Negative (Negative) Urine Ketones Negative (Negative) Urine Blood Negative (Negative) Urine Nitrite Negative (Negative) Urine Bilirubin Negative (Negative) Urine Urobilinogen <2.0 (<2.0) mg/dL Ur Leukocyte Esterase Negative (Negative) Disposition Clinical Impression: Abdominal pain, chronic, right upper quadrant Disposition: HOME SELF-CARE Condition: Good Instructions (If sedation given, give patient instructions): Abdominal Pain (ED) Additional Instructions: Please use medication as discussed. Please follow-up with gastroenterology in next 1-2 days. Please return to emergency room if the symptoms increase or worsen or for any other concerns. Is patient prescribed a controlled substance at d/c from ED?: No Referrals: Becca Barrios DO [Primary Care Provider] - 1-2 days Sean Sharp MD [STAFF PHYSICIAN] - 1-2 days Time of Disposition: 10:04
[2019-06-29 10:58] VITALS: BP 118/92; PULSE 60; RESP 17; TEMP 97.4
== END 2019-06-29 10:46 | disposition home or self-care (01) ==
LOC: EC 08:40
DX: G89.29 Other chronic pain (principal); R10.11 Right upper quadrant pain; K21.9 Gastro-esophageal reflux disease without esophagitis; I10 Essential (primary) hypertension; F17.200 Nicotine dependence, unspecified, uncomplicated; Z79.899 Other long term (current) drug therapy; Z88.5 Allergy status to narcotic agent; Z91.040 Latex allergy status; Z90.710 Acquired absence of both cervix and uterus; Z90.49 Acquired absence of other specified parts of digestive tract
CPT/HCPCS: 36415; 80053; 83690; 84484; 85025; 81003; 74177; 99284; 96374; 96361; J1885; Q9967

== ENCOUNTER → 2020-02-14 | Outpatient (CLI) | payer OTHER ==
[2020-02-14 09:58] VITALS: BP 105/73; PULSE 86; RESP 18; TEMP 97.6
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
== END | disposition home or self-care (01) ==
LOC: WWCWWP 09:45
PROVIDERS: ATTEND Surgery
DX: Z53.9 Procedure and treatment not carried out, unspecified reason (principal)

== ENCOUNTER → 2020-09-18 | Outpatient (CLI) | payer OTHER ==
--- NOTE | 2020-09-19 00:04 | MR ---
EXAMINATION TYPE: MR shoulder LT wo con DATE OF EXAM: 09/18/2020 COMPARISON: None HISTORY: Left Shoulder Pain, loss of ROM. Fell on Ice Multiplanar multiecho imaging of the left shoulder was performed without contrast. There is moderate spurring at the AC joint. There is edema in the lateral and of the clavicle. There is mild subacromial impingement on the supraspinatus muscle. The biceps tendon is intact. Subscapularis tendon is intact. Glenoid russ appear normal. There is sl ight increased signal in the supraspinatus tendon near the greater tuberosity of the humerus. I do no t see a definite full-thickness tear. There is no evidence of a fracture line. Proximal humerus is in tact. IMPRESSION: Slight increased signal in the supraspinatus tendon at the greater tuberosity of the humerus consiste nt with some mild tendinitis. There are small intrasubstance tears of the supraspinatus tendon seen o n coronal image 14 of the fat saturation images and also the superior aspect of the supraspinatus ten don near the attachment on the greater tuberosity seen on coronal image 12 of the T2 fat-sat images. There is increased signal in the lateral and of the clavicle and also the acromion with spur formatio n consistent with arthritic disease in possible additional bone bruise. There is mild impingement on the supraspinatus muscle.
== END | disposition home or self-care (01) ==
LOC: RADMRIMAIN 08:13
PROVIDERS: ATTEND Orthopaedic Surgery
DX: M75.102 Unspecified rotator cuff tear or rupture of left shoulder, not specified as traumatic (principal); M25.712 Osteophyte, left shoulder; M75.42 Impingement syndrome of left shoulder; R93.7 Abnormal findings on diagnostic imaging of other parts of musculoskeletal system

== ENCOUNTER → 2020-10-02 | Day surgery (SDC) | payer OTHER ==
[2020-09-29 15:36] VITALS: BMI 40.1
[~2020-10-02] MED LIST changes: -DEXAMETHASONE SOD PHOSPHATE 10 MG/ML 1 ML VIAL IV ONE; -HEPARIN SODIUM,PORCINE 5,000 UNIT/ML 1 ML VIAL SQ ONE; +LACTATED RINGERS 1,000 ML IV SCH; +LIDOCAINE 1% (10MG/ML) FOR IV START INTRADERMA ONE; -LIDOCAINE 1% 20 ML VIAL (10MG/ML) FOR IV START INTRADERMA PRN; -MIDAZOLAM 2 MG/2 ML VIAL IV PRN; -ONDANSETRON 4 MG/2 ML VIAL IVP ONE; +PROPOFOL 10 MG/ML 20 ML VIAL IV ONE; -SCOPOLAMINE 1.5MG/72HR PATCH TRANSDERM ONE; -ceFAZolin IN SWFI 2 GM/20 ML SYRINGE IVP ONE
[2020-10-02 08:37] VITALS: RESP 16; TEMP 96.9
--- NOTE | 2020-10-02 08:59 | P.GSHP ---
History of Present Illness H&P Date: 10/02/20 Chief Complaint: GI bleed This is a 35-year-old female been safe for colonoscopy. She's had issues with GI bleed. Past Medical History Past Medical History: Fibromyalgia, GERD/Reflux, GI Bleed, Hypertension Additional Past Medical History / Comment(s): Hx migraines, constant abdominal pain, nausea and bloating,fatty liver, interstitial cystitis, "high white blood cell count", hemorhage after Section, "slightly enlarged spleen, low thyroid, no meds." lt hip pain after recent fall History of Any Multi-Drug Resistant Organisms: None Reported Past Surgical History: Bladder Surgery, Section, Cholecystectomy, Hysterectomy, Tonsillectomy, Tubal Ligation Additional Past Surgical History / Comment(s): Tumors removed from uterus and ovary, lipoma removed from back, bilateral foot surgery, bilateral carpal tunnel, exploratory laparoscopy. Past Anesthesia/Blood Transfusion Reactions: No Reported Reaction Smoking Status: Former smoker - Past Family History Mother Family Medical History: Cancer, Deep Vein Thrombosis (DVT) Medications and Allergies Home Medications Medication Instructions Recorded Confirmed Type Omeprazole 20 mg PO DAILY 02/14/20 10/02/20 History Prazosin HCl 2 mg PO HS 02/14/20 10/02/20 History busPIRone HCL 10 mg PO DAILY PRN 02/14/20 10/02/20 History Pnv,Calcium 72/Iron/Folic Acid 1 each PO Q7D 09/29/20 10/02/20 History [ Plus Tablet] Rizatriptan Benzoate [Rizatriptan] 10 mg PO DAILY PRN 09/29/20 10/02/20 History Topiramate [Topamax] 100 mg PO HS 09/29/20 10/02/20 History buPROPion HCL [Wellbutrin XL] 150 mg PO DAILY 09/29/20 10/02/20 History Allergies Allergy/AdvReac Type Severity Reaction Status Date / Time codeine Allergy Swelling Verified 09/29/20 15:26 of mouth and tongue latex Allergy Swelling/ra Verified 09/29/20 15:26 sh Surgical - Exam Vital Signs Temp Pulse Resp BP Pulse Ox 96.9 F L 89 16 115/69 96 10/02/20 08:35 10/02/20 08:35 10/02/20 08:35 10/02/20 08:35 10/02/20 08:35 - General well developed, well nourished, no distress - Eyes PERRL - ENT normal pinna - Neck no masses - Respiratory normal expansion - Cardiovascular Rhythm: regular - Abdomen Abdomen: soft, non tender Assessment and Plan Assessment: GI Bleed. We'll perform colonoscopy
--- NOTE | 2020-10-02 09:10 | P.OP ---
Date of Procedure: 10/02/20 Preoperative Diagnosis: GI bleed Postoperative Diagnosis: Internal hemorrhoids Procedure(s) Performed: Colonoscopy Anesthesia: MAC Surgeon: Ruslan Brewer Pathology: none sent Condition: stable Disposition: PACU Description of Procedure: The patient's placed on the endoscopy table in the lateral position. She received IV sedation. The digital rectal exam was performed which revealed a few internal hemorrhoids. Flexible colonoscope was then placed patient anus passed throughout the entire colon. The ileocecal valve lesions. The cecum, ascending and transverse colon appeared normal. The descending and sigmoid colon appeared normal. Scope was brought back the rectum this appeared normal. There is no evidence of any colonic GI bleed. The scope was then brought through the anus and internal hemorrhoids are noted. There is known to any active bleeding from hemorrhoids. Scope was then withdrawn from patient.
[2020-10-02 09:27] VITALS: BP 117/70; PULSE 60
== END ==
LOC: ORWHC2ENDO 07:49
PROVIDERS: ATTEND Surgery
DX: K64.8 Other hemorrhoids (principal); K92.2 Gastrointestinal hemorrhage, unspecified; M79.7 Fibromyalgia; K21.9 Gastro-esophageal reflux disease without esophagitis; I10 Essential (primary) hypertension; G43.909 Migraine, unspecified, not intractable, without status migrainosus; K76.0 Fatty (change of) liver, not elsewhere classified; D72.829 Elevated white blood cell count, unspecified; Z98.891 History of uterine scar from previous surgery; Z90.49 Acquired absence of other specified parts of digestive tract; Z90.710 Acquired absence of both cervix and uterus; Z98.890 Other specified postprocedural states; Z98.51 Tubal ligation status; Z87.891 Personal history of nicotine dependence; Z90.89 Acquired absence of other organs; Z79.899 Other long term (current) drug therapy; Z88.5 Allergy status to narcotic agent; Z91.040 Latex allergy status
CPT/HCPCS: 45378; J2704

== ENCOUNTER → 2021-01-13 | Outpatient (CLI) | payer OTHER ==
[2021-01-13 08:19] LABS: Basophils # (A) 0.1 k/uL (0-0.2); Basophils % (A) 1 %; Eosinophils # (A) 0.2 k/uL (0-0.7); Eosinophils % (A) 3 %; HCT 41.4 % (34.0-46.0); HGB 13.4 gm/dL (11.4-16.0); Lymphocytes # (A) 3.1 k/uL (1.0-4.8); Lymphocytes % (A) 37 %; MCHC 32.4 g/dL (31.0-37.0); MCV 95.7 fL (80.0-100.0); Mean Platelet Volume 8.5; Monocytes # (A) 0.4 k/uL (0-1.0); Monocytes % (A) 5 %; Neutrophils # (A) 4.4 k/uL (1.3-7.7); Neutrophils % (A) 53 %; Platelet Count 342 k/uL (150-450); RBC 4.33 m/uL (3.80-5.40); RDW 12.9 % (11.5-15.5); WBC 8.4 k/uL (3.8-10.6)
[2021-01-13 08:28] LABS: Potassium 4.2 mmol/L (3.5-5.1)
== END | disposition home or self-care (01) ==
LOC: LABPAT 07:16
PROVIDERS: ATTEND Orthopaedic Surgery
DX: Z01.812 Encounter for preprocedural laboratory examination (principal); M75.41 Impingement syndrome of right shoulder
CPT/HCPCS: 36415; 80051; 85025

== ENCOUNTER 2021-01-21 08:35 | Day surgery (SDC) | payer OTHER ==
[2021-01-16 11:14] VITALS: BMI 32.8
--- NOTE | 2021-01-20 13:30 | HP ---
HISTORY AND PHYSICAL REASON FOR ADMISSION: Surgery scheduled 01/21/2021. HISTORY OF PRESENT ILLNESS: Danyelle Bryan is a 35-year-old patient seen with progressive left shoulder pain. We discussed options for treatment. She elected to proceed with arthroscopy. Consent is obtained. PAST MEDICAL HISTORY: Hypothyroidism. PAST SURGICAL HISTORY: Noncontributory. MEDICATIONS: Omeprazole, buspirone. ALLERGIES: NONE. SOCIAL HISTORY: She denies tobacco use. PHYSICAL EXAMINATION: Evaluation of her left shoulder, flexion 80, abduction 70, external rotation 30 with weakness. Tenderness along the anterolateral acromion and rotator cuff insertion site. Impingement positive at 70. Drop-arm sign is positive. Distal neurovascular exam intact. RADIOGRAPHS: Radiographs of the left shoulder revealed a type 2 acromion, acromioclavicular joint osteoarthritis and cystic changes of the tuberosity. Left shoulder MRI revealed a partial rotator cuff tear and acromial spur. IMPRESSION: 1. Left shoulder impingement with partial rotator cuff tear. 2. Left shoulder acromioclavicular joint osteoarthritis. 3. Hypothyroidism. PLAN: Left shoulder arthroscopy, subacromial decompression, arthroscopic rotator cuff repair, Lc procedure and debridement. MMODL / IJN: [id number] /
[2021-01-21] MEDS ORDERED: fentaNYL (PF) 50 MCG/ML 2 ML AMP IV PRN (08:46)
[2021-01-21] MEDS ORDERED: SCOPOLAMINE 1.5MG/72HR PATCH TRANSDERM ONE (08:46)
[2021-01-21] MEDS ORDERED: ONDANSETRON 4 MG/2 ML VIAL IVP ONE (08:46)
[2021-01-21] MEDS ORDERED: DEXAMETHASONE SOD PHOSPHATE 4 MG/ML 1 ML VIAL IV ONE (08:46)
[2021-01-21] MEDS ORDERED: LIDOCAINE 1% (10MG/ML) FOR IV START INTRADERMA PRN (08:46)
[2021-01-21] MEDS ORDERED: LACTATED RINGERS 1,000 ML IV SCH (08:46)
[2021-01-21] MEDS ORDERED: MIDAZOLAM 2 MG/2 ML VIAL IV ONE (10:14)
[2021-01-21] MEDS ORDERED: fentaNYL (PF) 50 MCG/ML 2 ML AMP ONE (10:31)
[2021-01-21] MEDS ORDERED: PHENYLEPHRINE-0.9% NACL SYG 1,000 MCG/10 ML SYRINGE ONE (10:31)
[2021-01-21] MEDS ORDERED: GLYCOPYRROLATE 0.2 MG/ML 2 ML VIAL ONE (10:31)
[2021-01-21] MEDS ORDERED: MIDAZOLAM 2 MG/2 ML VIAL ONE (10:31)
[2021-01-21] MEDS ORDERED: ROCURONIUM 10 MG/ML (5 ML VIAL) IV ONE (10:31)
[2021-01-21] MEDS ORDERED: ROPIVACAINE 5 MG/ML 30 ML VIAL ONE (10:31)
[2021-01-21] MEDS ORDERED: DEXAMETHASONE SOD PHOSPHATE 4 MG/ML 1 ML VIAL ONE (10:31)
[2021-01-21] MEDS ORDERED: LIDOCAINE 1% INJ 10MG/ML (20 ML MDV) ONE (10:31)
[2021-01-21] MEDS ORDERED: SUCCINYLCHOLINE CHLORIDE 100 MG/5 ML SYR IV ONE (10:31)
[2021-01-21] MEDS ORDERED: PROPOFOL 10 MG/ML 20 ML VIAL IV ONE (10:31)
--- NOTE | 2021-01-21 12:00 | P.OP ---
Date of Procedure: 01/21/21 Preoperative Diagnosis: Left shoulder impingement Postoperative Diagnosis: 1. Left shoulder rotator cuff tear 2. Left shoulder arthroscopic subacromial decompression Procedure(s) Performed: 1. Left shoulder arthroscopic rotator cuff repair 2. Left shoulder arthroscopic subacromial decompression Implants: 14.75 Arthrex swivel lock anchor Anesthesia: GETA, regional (Interscalene block) Surgeon: Conner Curry Front Maker Lockstitch #1: Cameron Cuellar Estimated Blood Loss (ml): 11 Pathology: none sent Condition: stable Disposition: PACU Indications for Procedure: 35-year-old patient seen with progressive left shoulder pain. After having treatment options discussed, she elected to proceed with arthroscopy. Operative Findings: See description of procedure Description of Procedure: Patient underwent an interscalene block by department of anesthesia. The patient was then taken to the operative suite. The patient underwent a general anesthetic by the department of anesthesia. The patient was placed into a lateral position and secured. There was appropriate padding of the bony prominence. Left shoulder was then prepped and draped in normal sterile orthopedic fashion. We placed the extremity in 10 pounds of longitudinal traction. A posterior incision was now made for a posterior working portal site. The trocar and cannula were inserted into the glenohumeral joint. Arthroscopy was initiated. Spinal needle was now inserted anteriorly, to ascertain the anterior working portal site. An incision was now made in that area, a trocar was inserted followed by a probe. The labrum was probed and found to be stable. The biceps tendon and anchor was stable. The glenohumeral head was unremarkable. Instruments now removed from glenohumeral joint. Utilizing the posterior working portal site, the trocar and cannula were inserted into the subacromial space. Arthroscopy initiated. I made an incision 2 fingerbreadths lateral to the acromion. I introduced my trocar followed by my ArthroCare ablator. I now began ablating thick subacromial bursal tissue, which exposed the undersurface of the anterior acromion. There was diminished subacromial space. There was a very prominent anterior acromion. A motorized bur was introduced and a subacromial decompression was performed. I also excised some osteophytes off the inferior aspect of the distal clavicle. The AC joint was visualized and noted to be mildly arthritic. I turned my attention to the rotator cuff tendon. There was significant partial tearing along the posterior aspect distal supraspinatus. Upon probing the area there was a full-thickness perforation present. I debrided the margins getting down to stable tendon tissue. The defect measured approximately 11 0.5 cm but was freely mobile over the footprint. I abraded the footprint with a motorized bur. With the assistance of Jaiden ZHAO I passed 3 everted mattress sutures through good bites of rotator cuff tendon. I punched the hole in the area of the footprint for insertion of an anchor. I now passed all 6 limbs of suture through the eyelet of a 4.75 Arthrex swivel lock anchor. I placed the eyelet into the pre- punched hole. I held the eyelet there while Jaiden ZHAO tensioned all 6 suture limbs and deployed the anchor was good fixation noted. All residual suture limbs were now clipped. We had good compression of the tendon along the entire footprint. Instruments now removed from the portal sites. All portal sites were approximated with nylon suture. Sterile dressings were applied followed by a shoulder sling. Cameron ZHAO assisted in this complex case. The patient was awakened, transferred to a bed, and taken to recovery in stable condition.
[2021-01-21 12:33] VITALS: TEMP 96.8
[2021-01-21] MEDS ORDERED: LACTATED RINGERS 1,000 ML IV ONE (12:48)
[2021-01-21 13:04] VITALS: RESP 20
[2021-01-21 13:21] VITALS: BP 118/83; PULSE 63
--- NOTE | 2021-01-21 19:11 | P.ANPRN ---
Procedure Note - Anesthesia - Nerve Block Performed Left Interscalene Time Out Performed: Yes (:14) Date of Procedure: 01/21/21 Procedure Start Time: Procedure Stop Time: Location of Patient: PreOp Indication: Acute Post-Operative Pain, Requested by Surgeon (Dr Curry) Sedation Type: Sedate with meaningful contact maintained Preparation: Sterile Prep Position: Supine Catheter: None Needle Types: Pajunk Needle Gauge: Other (see comment) (22g) Ultrasound used to visualize needle placement: Yes Ultrasound used to observe medication spread: Yes Injectate: 0.5% Ropivacaine (see comment for volume) (20cc + Decadron 4mg) Blood Aspirated: No Pain Paresthesia on Injection Noted: No Resistance on Injection: Normal Image Stored and Saved: Yes Events: Uneventful and Well Tolerated
== END 2021-01-21 13:38 | disposition home or self-care (01) ==
LOC: OR 08:35
PROVIDERS: ATTEND Orthopaedic Surgery
DX: M75.102 Unspecified rotator cuff tear or rupture of left shoulder, not specified as traumatic (principal); M25.712 Osteophyte, left shoulder; M19.012 Primary osteoarthritis, left shoulder; E03.9 Hypothyroidism, unspecified; Z79.899 Other long term (current) drug therapy; I10 Essential (primary) hypertension; K21.9 Gastro-esophageal reflux disease without esophagitis
CPT/HCPCS: 64415; 76942; 29826; 29827; C1713; J2250; J1100; J0690; J2405; J2001; J3010; J2795; J2370; J0330; J2704

== ENCOUNTER → 2022-03-19 | Outpatient (CLI) | payer OTHER ==
[2022-03-19 14:16] LABS: Basophils # (A) 0.05 X 10*3/uL (0.00-0.10); Basophils % (A) 0.4 %; Eosinophils # (A) 0.19 X 10*3/uL (0.04-0.35); Eosinophils % (A) 1.5 %; HCT 42.1 % (37.2-46.3); HGB 13.2 g/dL (12.0-15.0); Immature Grans, Automated 0.5 %; Lymphocytes # (A) 3.38 X 10*3/uL (0.90-5.00); Lymphocytes % (A) 27.2 %; MCH 29.5 pg (27.0-32.0); MCHC 31.4 g/dL (32.0-37.0); Mean Platelet Volume 11.8 fL (9.5-12.2); Monocytes # (A) 0.68 X 10*3/uL (0.20-1.00); Monocytes % (A) 5.5 %; NRBC Per 100 WBC 0 /100 WBCS (0.0-0.0); Neutrophils # (A) 8.05 X 10*3/uL (1.80-7.70); Neutrophils % (A) 64.9 %; Platelet Count 424 X 10*3/uL (140-440); RBC 4.48 X 10*6/uL (4.10-5.20); RDW 12.9 % (11.5-14.5); WBC 12.41 X 10*3/uL (4.50-10.00)
== END ==
LOC: LABPAT 10:03
PROVIDERS: ATTEND Surgery
DX: Z01.818 Encounter for other preprocedural examination (principal)
CPT/HCPCS: 36415; 85025

== ENCOUNTER 2022-03-29 11:56 | Day surgery (SDC) | payer OTHER ==
[2022-03-25 11:45] VITALS: BMI 43.4
[~2022-03-29 11:56] MED LIST changes: -LACTATED RINGERS 1,000 ML IV SCH; -LIDOCAINE 1% (10MG/ML) FOR IV START INTRADERMA ONE; +LIDOCAINE 1% (10MG/ML) FOR IV START INTRADERMA PRN; -PROPOFOL 10 MG/ML 20 ML VIAL IV ONE
[2022-03-29] MEDS: LACTATED RINGERS 1,000 ML IV SCH ×2 (12:20→14:15)
[2022-03-29 12:31] VITALS: TEMP 97.1
[2022-03-29] MEDS ORDERED: fentaNYL (PF) 50 MCG/ML 2 ML AMP ONE (14:16)
[2022-03-29] MEDS ORDERED: PROPOFOL 10 MG/ML 20 ML VIAL IV ONE (14:16)
[2022-03-29] MEDS ORDERED: LIDOCAINE 2% INJ 20 MG/ML (2 ML VIAL) ONE (14:16)
--- NOTE | 2022-03-29 14:29 | P.GSHP ---
History of Present Illness H&P Date: 03/29/22 Chief Complaint: GERD This a 36-year-old female with history of GERD. Patient will stay for EGD. Patient's morbid obese. Her BMI is 42. 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 Past Anesthesia/Blood Transfusion Reactions: No Reported Reaction Past Psychological History: Anxiety Past Alcohol Use History: None Reported Additional Past Alcohol Use History / Comment(s): STARTED SMOKING AT AGE 14 QUIT Smokes 1/2 PPD, since age 14 yrs old. QUIT DRINKING Past Drug Use History: Marijuana - Past Family History Mother Family Medical History: Cancer, Deep Vein Thrombosis (DVT) Father Family Medical History: Pulmonary Embolus Medications and Allergies Home Medications Medication Instructions Recorded Confirmed Type No Known Home Medications 03/25/22 03/25/22 History Allergies Allergy/AdvReac Type Severity Reaction Status Date / Time latex Allergy Severe Swelling/ra Verified 03/29/22 12:08 sh codeine Allergy Swelling Verified 03/29/22 12:08 of mouth and tongue Surgical - Exam Vital Signs Temp Pulse Resp BP Pulse Ox 97.1 F L 88 16 141/79 95 03/29/22 12:20 03/29/22 12:20 03/29/22 12:20 03/29/22 12:20 03/29/22 12:20 - General well developed, well nourished, no distress - Eyes PERRL - ENT normal pinna - Neck no masses - Respiratory normal expansion - Cardiovascular Rhythm: regular - Abdomen Abdomen: soft, non tender Assessment and Plan Assessment: GERD. Morbid obesity. We'll perform EGD.
--- NOTE | 2022-03-29 14:41 | P.OP ---
Date of Procedure: 03/29/22 Preoperative Diagnosis: GERD Postoperative Diagnosis: Antral gastritis Hiatal hernia Procedure(s) Performed: EGD Anesthesia: MAC Pathology: other (Antrum, esophagus) Condition: stable Disposition: PACU Description of Procedure: The patient's placed on the operating table in the lateral position. She received IV sedation. The gastroscope placed oropharynx passed in the esophagus into the stomach. Scope some placed through the pylorus. The first and second portion duodenum appeared normal. Scope was then brought back the antrum this appeared mildly inflamed. The scope was then brought back. The patient appeared to have a moderate size hiatal hernia. The GE junction was at 38 cm. The distal esophagus appeared inflamed. This area is biopsied. The proximal esophagus appeared normal. Scope withdrawn for patient.
[2022-03-29 14:47] VITALS: RESP 18
[2022-03-29 14:59] VITALS: BP 115/81; PULSE 74
== END 2022-03-29 15:15 | disposition home or self-care (01) ==
LOC: ORWHC2ENDO 11:56
PROVIDERS: ATTEND Surgery
DX: K21.00 Gastro-esophageal reflux disease with esophagitis, without bleeding (principal); K29.50 Unspecified chronic gastritis without bleeding; B96.81 Helicobacter pylori [H. pylori] as the cause of diseases classified elsewhere; K44.9 Diaphragmatic hernia without obstruction or gangrene; J45.909 Unspecified asthma, uncomplicated; M79.7 Fibromyalgia; I10 Essential (primary) hypertension; K76.0 Fatty (change of) liver, not elsewhere classified; Z90.49 Acquired absence of other specified parts of digestive tract; Z90.710 Acquired absence of both cervix and uterus; Z98.51 Tubal ligation status; F41.9 Anxiety disorder, unspecified; Z82.49 Family history of ischemic heart disease and other diseases of the circulatory system; Z88.5 Allergy status to narcotic agent; Z91.040 Latex allergy status; E66.01 Morbid (severe) obesity due to excess calories; Z68.41 Body mass index [BMI] 40.0-44.9, adult; Z79.899 Other long term (current) drug therapy; Z87.891 Personal history of nicotine dependence; Z80.9 Family history of malignant neoplasm, unspecified
CPT/HCPCS: 88305; 88342; 43239; J3010; J2704; J2001

== ENCOUNTER 2022-03-30 08:26 | Day surgery (SDC) | payer OTHER ==
[2022-03-25 15:23] VITALS: BMI 43.4
[~2022-03-30 08:26] MED LIST changes: +ACETAMINOPHEN TAB 500 MG TAB PO PRN; +DEXAMETHASONE SOD PHOSPHATE 4 MG/ML 1 ML VIAL IV ONE; +HEPARIN SODIUM,PORCINE/PF 5,000 UNIT/0.5 ML SYRINGE SQ PRN; +LACTATED RINGERS 1,000 ML IV SCH; +ONDANSETRON 4 MG/2 ML VIAL IVP ONE; +SCOPOLAMINE 1 MG/72 HR PATCH TRANSDERM ONE; +ceFAZolin 3 GM in SODIUM CHLORIDE 0.9% 100 ML IVPB PRN
[2022-03-30 09:09] LABS: Glucose,Whole Blood 110 mg/dL (70-110)
[2022-03-30] MEDS ORDERED: MIDAZOLAM 2 MG/2 ML VIAL IVP ONE (09:39)
[2022-03-30] MEDS: fentaNYL (PF) 50 MCG/ML 2 ML AMP IV PRN ×3 (09:39→12:34)
[2022-03-30 10:05] VITALS: RESP 16
--- NOTE | 2022-03-30 10:33 | P.GSHP ---
History of Present Illness H&P Date: 03/30/22 Chief Complaint: Umbilical hernia This is a 36-year-old female who presents today for laparoscopic robotic- assisted repair of umbilical hernia. Patient's had complaints of some periumbilical pain. Patient had imaging which showed a umbilical hernia. 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 Past Anesthesia/Blood Transfusion Reactions: No Reported Reaction Past Psychological History: Anxiety Past Alcohol Use History: None Reported Additional Past Alcohol Use History / Comment(s): STARTED SMOKING AT AGE 14 QUIT Smokes 1/2 PPD, since age 14 yrs old. QUIT DRINKING Past Drug Use History: Marijuana - Past Family History Mother Family Medical History: Cancer, Deep Vein Thrombosis (DVT) Father Family Medical History: Pulmonary Embolus Medications and Allergies Home Medications Medication Instructions Recorded Confirmed Type No Known Home Medications 03/25/22 03/30/22 History Allergies Allergy/AdvReac Type Severity Reaction Status Date / Time latex Allergy Severe Swelling/ra Verified 03/30/22 08:47 sh codeine Allergy Swelling Verified 03/30/22 08:47 of mouth and tongue Surgical - Exam Vital Signs Temp Pulse Resp BP Pulse Ox 98.0 F 68 18 117/70 95 03/30/22 08:57 03/30/22 08:57 03/30/22 08:57 03/30/22 08:57 03/30/22 08:57 - General well developed, well nourished, no distress - Eyes PERRL - ENT normal pinna - Neck no masses - Respiratory normal expansion - Cardiovascular Rhythm: regular - Abdomen Abdomen: soft Hernia: umbilical Assessment and Plan Assessment: Umbilical hernia. We'll perform laparoscopic robotic-assisted repair.
[2022-03-30] MEDS ORDERED: NEOSTIGMINE 1 MG/ML 10 ML VIAL ONE (10:50)
[2022-03-30] MEDS ORDERED: SODIUM CHLORIDE 0.9% (PF) 10 ML VIAL ONE (10:50)
[2022-03-30] MEDS ORDERED: PROPOFOL 10 MG/ML 20 ML VIAL IV ONE (10:50)
[2022-03-30] MEDS ORDERED: KETAMINE 10 MG/ML 20 ML VIAL ONE (10:50)
[2022-03-30] MEDS ORDERED: LIDOCAINE 2% INJ 20 MG/ML (2 ML VIAL) ONE (10:50)
[2022-03-30] MEDS ORDERED: BUPIVACAIN-EPI 0.25%-1:200,000 30 ML VIAL SQ ONE ×2 (10:50→11:14)
[2022-03-30] MEDS ORDERED: fentaNYL (PF) 50 MCG/ML 2 ML AMP ONE (10:50)
[2022-03-30] MEDS ORDERED: HYDROmorphone (PF) 1 MG/ML ONE (10:50)
[2022-03-30] MEDS ORDERED: ROPIVACAINE 5 MG/ML 30 ML VIAL ONE (10:50)
[2022-03-30] MEDS ORDERED: ROCURONIUM 10 MG/ML (5 ML VIAL) IV ONE (10:50)
[2022-03-30] MEDS ORDERED: GLYCOPYRROLATE 0.2 MG/ML 2 ML VIAL ONE (10:50)
[2022-03-30] MEDS ORDERED: MIDAZOLAM 2 MG/2 ML VIAL ONE (10:50)
[2022-03-30] MEDS ORDERED: SUCCINYLCHOLINE CHLORIDE 200 MG/10 ML VIAL IV ONE (10:50)
--- NOTE | 2022-03-30 10:57 | P.ANPRN ---
Procedure Note - Anesthesia - Nerve Block Performed Bilateral Rectus Abdominis Time Out Performed: Yes (:36) Date of Procedure: 03/30/22 Procedure Start Time: Procedure Stop Time: :45 Location of Patient: PreOp Indication: Acute Post-Operative Pain, Requested by Surgeon (Dr Brewer) Sedation Type: Sedate with meaningful contact maintained Preparation: Sterile Prep Position: Supine Catheter: None Needle Types: Pajunk Needle Gauge: 21 Ultrasound used to visualize needle placement: Yes Ultrasound used to observe medication spread: Yes Injectate: 0.5% Ropivacaine (see comment for volume) (15cc + 5cc PF Normal saline each side) Blood Aspirated: No Pain Paresthesia on Injection Noted: No Resistance on Injection: Normal Image Stored and Saved: Yes Events: Uneventful and Well Tolerated
[2022-03-30] MEDS ORDERED: LACTATED RINGERS 1,000 ML IV ONE (11:51)
--- NOTE | 2022-03-30 11:57 | P.OP ---
Date of Procedure: 03/30/22 Preoperative Diagnosis: Umbilical hernia Postoperative Diagnosis: Incarcerated umbilical hernia Procedure(s) Performed: Laparoscopic robotic-assisted repair of incarcerated umbilical hernia Partial omentectomy Tap block Anesthesia: SUELLEN Surgeon: Ruslan Brewer Estimated Blood Loss (ml): 5 Pathology: other (Omentum) Condition: stable Disposition: PACU Description of Procedure: The patient was placed on the operating table in the supine position. He received general anesthesia. His abdomen was prepped and draped usual fashion. Using a 5 mm optical trocar under direct visualization the peritoneal cavity was entered in the left upper quadrant. The abdomen was then insufflated. The laparoscope was placed back into the perineal cavity. Next a 8 mm robotic trocar was placed in the left lower quadrant and a 12 mm robotic trocar was placed in the left lateral position. The original 5 mm trocar was exchanged for a 8 mm robotic trocar. A four-quadrant transversus abdominis plane block was performed using 1% local Xylocaine. The patient's placed in the left side up position. And the patient was docked the robot. The umbilical hernia was visualized. Using hook cautery the peritoneum over the umbilical hernia was excised. Incarcerated omentum was sent to pathology. The fascial opening was repaired using 0V LOC suture. Next a piece of 11 cm round ventral light ST mesh was placed into the. Cavity and secured with 2 OV lock suture. The patient was undocked the robot. The needles were retrieved. The fascia of the 12 mm trocar site was closed with 0 Ethibond suture. Skin was closed interrupted 3-0 Monocryl suture. Dermabond dressings was applied. Patient top procedure well and was sent to recovery room stable condition.
[2022-03-30 12:15] VITALS: TEMP 97.1
[2022-03-30 13:47] VITALS: BP 131/87; PULSE 62
== END 2022-03-30 14:31 | disposition home or self-care (01) ==
LOC: OR 08:26
PROVIDERS: ATTEND Surgery
DX: K42.0 Umbilical hernia with obstruction, without gangrene (principal); J45.909 Unspecified asthma, uncomplicated; M79.7 Fibromyalgia; K21.9 Gastro-esophageal reflux disease without esophagitis; I10 Essential (primary) hypertension; G43.909 Migraine, unspecified, not intractable, without status migrainosus; K76.0 Fatty (change of) liver, not elsewhere classified; Z98.891 History of uterine scar from previous surgery; Z90.49 Acquired absence of other specified parts of digestive tract; Z90.710 Acquired absence of both cervix and uterus; Z98.51 Tubal ligation status; Z98.890 Other specified postprocedural states; F41.9 Anxiety disorder, unspecified; F17.210 Nicotine dependence, cigarettes, uncomplicated; Z80.9 Family history of malignant neoplasm, unspecified; Z82.49 Family history of ischemic heart disease and other diseases of the circulatory system; Z88.5 Allergy status to narcotic agent; Z91.040 Latex allergy status
CPT/HCPCS: 64488; 86900; 86901; 88305; 86850; 49653; C1781; J2250; J0330; J1100; J2710; J0690; J2405; J3010; J1170; J2795; J2704; J2001

== ENCOUNTER → 2022-08-14 | Outpatient (CLI) | payer OTHER ==
--- NOTE | 2022-08-14 21:30 | MR ---
EXAMINATION TYPE: MR lumbar spine wo con DATE OF EXAM: 08/14/2022 12:50 PM COMPARISON: CT abdomen pelvis 06/29/2019. CLINICAL INDICATION:Female, 37 years old with history of M54.59 OTHER LOW BACK PAIN; TECHNIQUE: Multi planar, multi sequence imaging was performed utilizing: T1-weighted, T2-weighted, a nd turbo inversion recovery imaging of the lumbar spine. IV Contrast: None. FINDINGS: Alignment: The lumbar vertebral bodies have preserved heights and alignment. Cord: The conus medullaris and the distal spinal cord appear unremarkable with regards to their signa l intensity and morphology. Bones/Discs: Bone signal is within normal limits. No abnormal signal on inversion recovery sequences. Mild disc desiccation at L4-L5. L1-L2: No evidence of significant spinal canal stenosis or neural foraminal stenosis. L2-L3: No evidence of significant spinal canal stenosis or neural foraminal stenosis. L3-L4: No evidence of significant spinal canal stenosis or neural foraminal stenosis. L4-L5: No evidence of significant spinal canal stenosis or neural foraminal stenosis. L5-S1: No evidence of significant spinal canal stenosis or neural foraminal stenosis. Other findings: None. IMPRESSION: No definitive evidence of disc herniation or significant spinal canal stenosis.
== END | disposition home or self-care (01) ==
LOC: RADMRIMAIN 11:21
PROVIDERS: ATTEND Physical Medicine & Rehabilitation
DX: M43.16 Spondylolisthesis, lumbar region (principal); M51.16 Intervertebral disc disorders with radiculopathy, lumbar region; M51.17 Intervertebral disc disorders with radiculopathy, lumbosacral region; M46.27 Osteomyelitis of vertebra, lumbosacral region
CPT/HCPCS: 72148

== ENCOUNTER → 2023-12-13 | Outpatient (CLI) | payer OTHER ==
--- NOTE | 2023-12-19 14:34 | CT ---
EXAMINATION TYPE: CT abdomen pelvis w con CT DLP: 1570 mGycm, Automated exposure control for dose reduction was used. DATE OF EXAM: 12/13/2023 11:28 AM COMPARISON: CT abdomen pelvis 06/29/2019 CLINICAL INDICATION:Female, 38 years old with history of R19.4 CHANGE IN BOWEL HABIT; LLQ mass TECHNIQUE: Axial CT abdomen pelvis w con;Sagittal and coronal reformats were created on a separate w orkstation. Contrast used:100ml mL of Isovue 300 with IV Contrast, (none if empty) Oral contrast used: with Oral Contrast (none if empty) FINDINGS: LOWER CHEST: Unremarkable ABDOMEN LIVER: Unremarkable GALLBLADDER AND BILE DUCTS: Unremarkable. PANCREAS: Unremarkable. SPLEEN: Unremarkable. ADRENAL GLANDS: Unremarkable. KIDNEYS AND URETERS: No evidence of hydronephrosis or renal calculus. The ureters are unremarkable. PELVIS BLADDER: Unremarkable REPRODUCTIVE: Unremarkable. ABDOMEN & PELVIS STOMACH AND BOWEL: Stomach and duodenum are unremarkable. No evidence of bowel obstruction. PERITONEUM/RETROPERITONEUM: No evidence of pneumoperitoneum or free fluid. VASCULATURE: No evidence of aortic aneurysm. MUSCULOSKELETAL: No acute osseous abnormalities LYMPH NODES: No gross evidence for lymphadenopathy. SOFT TISSUE/ABDOMINAL WALL: Unremarkable IMPRESSION: 1. No CT findings to explain physical exam findings
== END | disposition home or self-care (01) ==
LOC: RADCTMAIN 09:26
PROVIDERS: ATTEND Family Medicine
DX: R19.4 Change in bowel habit (principal)
CPT/HCPCS: 74177; Q9967

== ENCOUNTER 2023-12-15 08:08 | Day surgery (SDC) | payer OTHER ==
[2023-12-14 11:01] VITALS: BMI 45.4
[2023-12-15] MEDS: LACTATED RINGERS 1,000 ML IV SCH (09:16)
[2023-12-15 09:27] VITALS: TEMP 97.4
[2023-12-15] MEDS ORDERED: PROPOFOL 10 MG/ML 20 ML VIAL IV ONE (09:36)
[2023-12-15] MEDS ORDERED: fentaNYL (PF) 50 MCG/ML 2 ML AMP ONE (09:36)
[2023-12-15] MEDS ORDERED: LIDOCAINE 2% (PF) 20 MG/ML 5 ML VIAL ONE (09:36)
--- NOTE | 2023-12-15 09:42 | P.GSHP ---
History of Present Illness H&P Date: 12/15/23 Chief Complaint: GERD, constipation Gt is a 38-year-old female who presents today for EGD and colonoscopy. Patient is issues with GERD and a known diaphragmatic hernia. He also had issues with constipation. 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 rotator cuff left , umbilical hernia repair, eg d , colonoscopy Past Anesthesia/Blood Transfusion Reactions: No Reported Reaction Additional Past Anesthesia/Blood Transfusion Reaction / Comment(s): no blood transfusion Smoking Status: Former smoker - Past Family History Mother Family Medical History: Cancer, Deep Vein Thrombosis (DVT) Additional Family Medical History / Comment(s): bone Father Family Medical History: Pulmonary Embolus Medications and Allergies Home Medications Medication Instructions Recorded Confirmed Type No Known Home Medications 12/14/23 12/14/23 History Allergies Allergy/AdvReac Type Severity Reaction Status Date / Time latex Allergy Severe Swelling/ra Verified 12/15/23 09:10 sh codeine Allergy Swelling Verified 12/15/23 09:10 of mouth and tongue Surgical - Exam Vital Signs Temp Pulse Resp BP Pulse Ox 97.4 F L 65 16 128/78 97 12/15/23 09:11 12/15/23 09:11 12/15/23 09:11 12/15/23 09:11 12/15/23 09:11 - General well developed, well nourished, no distress - Eyes PERRL - ENT normal pinna - Neck no masses - Respiratory normal expansion - Cardiovascular Rhythm: regular - Abdomen Abdomen: soft, non tender Assessment and Plan Assessment: GERD, history of diabetic hernia. And cost patient. We'll perform EGD and colonoscopy.
--- NOTE | 2023-12-15 10:00 | P.OP ---
Date of Procedure: 12/15/23 Preoperative Diagnosis: GERD Constipation Postoperative Diagnosis: history gastritis Small hiatal hernia Esophagitis Normal colon Procedure(s) Performed: EGD Colonoscopy Anesthesia: SUELLEN Surgeon: Ruslan Brewer Pathology: other (antrum, esophagus) Condition: stable Disposition: PACU Description of Procedure: the patient's placed on the endoscopy table in the lateral position. She received IV sedation. The gastroscope placed oropharynx passed in the esophagus and stomach. Scope was then placed through the pylorus. The first and second portion of duodenum appeared normal. Scope was then brought back the antrum was mildly inflamed. A biopsies performed. Scope was retroflexed and remainder of the stomach appeared normal.patient had a small hiatal hernia. The GE junction was at 38 cm per the distal esophagus appeared mildly inflamed. A biopsies performed. The proximal esophagus appeared normal. Scope withdrawn for patient. Next digital rectal exam was performed. This revealed no abnormalities. Flexible colonoscope was then placed patient anus passed throughout the entire colon. The ileocecal valve was visualized. The cecum, ascending and transverse colon appeared normal. The descending and sigmoid colon appeared normal. Scope summer back the rectum and this appeared normal. Scope withdrawn for patient.
[2023-12-15 10:59] VITALS: BP 106/71; PULSE 73; RESP 16
== END 2023-12-15 10:32 | disposition home or self-care (01) ==
LOC: ORWHC2ENDO 08:08
PROVIDERS: ATTEND Surgery
DX: K29.50 Unspecified chronic gastritis without bleeding (principal); K21.00 Gastro-esophageal reflux disease with esophagitis, without bleeding; K44.9 Diaphragmatic hernia without obstruction or gangrene; E11.9 Type 2 diabetes mellitus without complications; I10 Essential (primary) hypertension; J45.909 Unspecified asthma, uncomplicated; K76.0 Fatty (change of) liver, not elsewhere classified; M79.7 Fibromyalgia; Z87.891 Personal history of nicotine dependence; Z91.040 Latex allergy status; Z79.899 Other long term (current) drug therapy
CPT/HCPCS: 88305; 45378; 43239; J3010; J2704; J2001

== ENCOUNTER → 2024-03-07 | Outpatient (CLI) | payer OTHER ==
--- NOTE | 2024-03-07 14:12 | MM ---
Reason for Exam: Clinical finding. Last mammogram was performed 2 year(s) and 6 month(s) ago. Patient History: Menarche at age 14. First Full-Term at age 17. Left ovary removed at age 27. Hysterectomy at age 27. Postmenopausal. Maternal cousin had breast cancer, age 40. Risk Values: Mira 5 year model risk: 0.3%. NCI Lifetime model risk: 6.7%. Tissue Density: There are scattered areas of fibroglandular density. Findings: Analyzed By CAD. The pattern is symmetrical. No significant interval change. No suspicious groups of microcalcifications, spiculated or lobular masses, architectural distortion or other secondary signs of malignancy are mammographically apparent. Overall Assessment: Benign, BI-RAD 2 Management: Screening Mammogram of both breasts in 1 year. A negative mammogram report should not preclude additional follow up of suspicious palpable abnormalities. Patient should continue monthly self breast exam. A clinical breast exam by your physician is recommended on an annual basis and results should be correlated with mammographic findings. Note on Mira scores and lifetime risk: 1. A Mira score greater than 3% is considered moderate risk. If this is the case, consider specialist referral to assess eligibility for a risk reducing agent. 2. If overall lifetime risk for the development of breast cancer is 20% or higher, the patient may qualify for future screening with alternating mammogram and breast MRI. Electronically signed and approved by: Riaz Gandara D.O. Radiologis
== END | disposition home or self-care (01) ==
LOC: RADMAMWWP 13:31
PROVIDERS: ATTEND Family Medicine
DX: R92.323 Mammographic fibroglandular density, bilateral breasts (principal); R92.8 Other abnormal and inconclusive findings on diagnostic imaging of breast; Z78.0 Asymptomatic menopausal state; Z80.3 Family history of malignant neoplasm of breast
CPT/HCPCS: 77062; 77066

== ENCOUNTER → 2024-07-03 | Outpatient (CLI) | payer OTHER ==
--- NOTE | 2024-07-03 15:07 | CT ---
EXAMINATION TYPE: CT sinus wo con CT DLP: 422.4 mGycm, Automated exposure control for dose reduction was used. DATE OF EXAM: 07/03/2024 3:00 PM COMPARISON: None. CLINICAL INDICATION:Female, 39 years old with history of J32.0; PHH, Deviated septum pre-surgical. CONTRAST: None. TECHNIQUE: Multiple thin axial images were obtained through the paranasal sinuses without the use of IV contrast. Additional coronal and sagittal reformatted images were submitted for evaluation. FINDINGS: Frontal sinuses: Normally developed and aerated. Frontal Recess: Clear Maxillary Sinuses: Normally developed. The left maxillary sinus is clear. Inferior right maxillary si nus mucous retention cysts with largest measuring up to 1.7 cm. Maxillary Infundibula([facility]): Clear, bilateral small Madai cells without significant narrowing of the ostiomeatal unit complexes. Ethmoid sinuses: Normally developed and aerated. Ethmoidal notch: Protected and abutting the lateral lamina. Sphenoid sinuses: Normally developed and aerated. There is incomplete sellar sphenoid sinus pneumatiz ation without evidence of dehiscence. No dehiscence of carotid canal. No evidence of optic nerve deh iscence within the sphenoid sinus. No evidence of Onodi cells. Sphenoethmoidal recesses: Clear. Nasal septum: Nasal septal radiation of the right with spurring. Nasal Turbinates: Within normal limits. Mastoid air cells & middle ears: The air cells are clear. The middle ears are grossly unremarkable. Modified Soft tissues & Brain: Partially seen without gross abnormality. Globes are intact. Other: Cribriform plate demonstrates symmetric Keros classification type 2 cribriform plate. No evidence of bony dehiscence of skull base. Lamina papyracea is intact without evidence of remote orbital fracture or orbital prolapse into the e thmoid sinus. IMPRESSION: 1. Mucous retention cysts within the inferior right maxillary sinus. The remaining paranasal sinuses are clear. 2. The ostiomeatal units, frontonasal and sphenoethmoidal recesses are clear. Bilateral small Madai cells without significant narrowing of the osteochondral complexes. 3. Prominent nasal septal deviation to the right with spurring. [facility], , 07/03/2024 3:05 PM
== END | disposition home or self-care (01) ==
LOC: RADCTMAIN 14:42
PROVIDERS: ATTEND Otolaryngology
DX: J32.0 Chronic maxillary sinusitis (principal); R13.13 Dysphagia, pharyngeal phase; J34.2 Deviated nasal septum
CPT/HCPCS: 70486

== ENCOUNTER → 2024-08-16 | Outpatient (CLI) | payer OTHER ==
[2024-08-16 15:55] LABS: Appearance,Urine Clear (Clear); Bilirubin,Urine Negative (Negative); Blood,Urine Negative (Negative); Color,Urine Light Yellow; Glucose,Urine (UA) Negative (Negative); Ketones,Urine Negative (Negative); Leukocyte Esterase,Urine Negative (Negative); Nitrite,Urine Negative (Negative); PH, Urine 5.5 (5.0-8.0); Protein,Urine Negative (Negative); Specific Gravity,Urine 1.031 (1.001-1.035); Urobilinogen,Urine <2.0 mg/dL (<2.0)
[2024-08-16 19:08] LABS: Basophils # (A) 0.09 X 10*3/uL (0.00-0.10); Basophils % (A) 0.5 %; Eosinophils # (A) 0.23 X 10*3/uL (0.04-0.35); Eosinophils % (A) 1.4 %; HCT 40.8 % (37.2-46.3); HGB 13.4 g/dL (12.0-15.0); Lymphocytes # (A) 4.06 X 10*3/uL (0.90-5.00); Lymphocytes % (A) 24.5 %; MCH 30.2 pg (27.0-32.0); MCHC 32.8 g/dL (32.0-37.0); MCV 91.9 FL (80.0-97.0); Mean Platelet Volume 11.4 FL (9.5-12.2); Monocytes # (A) 0.92 X 10*3/uL (0.20-1.00); Monocytes % (A) 5.6 %; NRBC Per 100 WBC 0 X 10*3/uL (0.00-0.01); Neutrophils # (A) 11.17 X 10*3/uL (1.80-7.70); Neutrophils % (A) 67.6 %; Platelet Count 455 X 10*3/uL (140-440); RBC 4.44 X 10*6/uL (4.10-5.20); RDW 12.4 % (11.5-14.5); WBC 16.54 X 10*3/uL (4.50-10.00)
[2024-08-16 19:25] LABS: Blood Urea Nitrogen 13.2 mg/dL (9.0-27.0); Calcium 9.8 mg/dL (8.7-10.3); Carbon Dioxide 22.8 mmol/L (21.6-31.8); Chloride 103 mmol/L (96-109); Glucose 107 mg/dL (70-110); Potassium 4.2 mmol/L (3.5-5.5); Sodium 140 mmol/L (135-145)
== END | disposition home or self-care (01) ==
LOC: LABWHC1 14:09
PROVIDERS: ATTEND Urology
DX: N30.10 Interstitial cystitis (chronic) without hematuria (principal)
CPT/HCPCS: 36415; 80048; 81003; 85025; 87086

== ENCOUNTER → 2024-09-13 | Outpatient (CLI) | payer OTHER ==
--- NOTE | 2024-09-15 08:56 | CT ---
EXAMINATION TYPE: CT abdomen pelvis w con DATE OF EXAM: 09/13/2024 4:16 PM COMPARISON: No comparison ultrasounds available at this location. CLINICAL INDICATION: Female, 39 years old with history of N83.8 OTH NONINFLAMMATORY DISORD OF OVARY, FALLOP, Mass on ovary. TECHNIQUE: Axial images were obtained from above the diaphragm to the pubic rami in the axial plane a t 5 mm thick sections. Reconstructed images are reviewed on the computer in the coronal plane. CONTRAST: 100 ml mL of Isovue 300. Study performed with Oral Contrast DLP: 2175.6 mGycm, Automated exposure control for dose reduction was used. FINDINGS: Limited CT sections are obtained the lung bases. The lung bases are clear. CT ABDOMEN: Liver: Mild fatty infiltration is through the liver. No discrete mass is evident. Spleen: Normal Pancreas: Normal Adrenal glands: The adrenal glands are normal. Gallbladder: Absent Kidneys: No masses are evident. No hydronephrosis is present. No cysts are present. Delayed images were obtained through the kidneys, which remain unremarkable. Aorta: Normal Inferior vena cava: Normal. CT PELVIS: Loops of bowel within the abdomen and pelvis are normal. Fecal debris is within the colon. There a re loops of bowel which are incompletely distended or lack oral contrast limiting their evaluation. Appendix: Not visualized. No dilated tubular structure or inflammatory change is evident Urinary bladder: Normal. Genitourinary structures: Uterus is not identified. There is a solid-appearing left adnexal mass betzaida uring 3.4 x 2.8 cm. Correlate with surgical history. Finding could be related related to residual ova jerry tissue. Osseous structures: No suspicious lytic or sclerotic lesions. IMPRESSION: 1. No acute abnormality. 2. Solid appearing left ovary. Follow-up can be performed as clinically indicated. [facility], Workstation: [facility], 09/15/2024 8:54 AM
== END | disposition home or self-care (01) ==
LOC: RADCTMAIN 14:19
PROVIDERS: ATTEND Family Medicine
DX: N83.8 Other noninflammatory disorders of ovary, fallopian tube and broad ligament (principal); N83.202 Unspecified ovarian cyst, left side
CPT/HCPCS: 74177; Q9967